=== PATIENT | male | born 1995 | race Caucasian/White ===

== ENCOUNTER 2019-03-05 05:13 | Inpatient (IN) | payer BC ==
[~2019-03-05] VITALS: Ht 193 cm; Wt 83.5 kg
[2019-03-05 05:16] VITALS: BP 131/87
[2019-03-05] MEDS ORDERED: ADDERALL 10 MG10 MG PO (05:23)
[2019-03-05 05:41] LABS: ABSOLUTE NEUTROPHILS 7.6 thou/uL (1.4-8.2); BASOPHILS 0.8 % (0.0-2.0); EOSINOPHILS 0.6 % (0.0-3.0); HEMATOCRIT 44.9 % (42.0-52.0); HEMOGLOBIN 15.5 gm/dL (14.0-18.0); LYMPHOCYTES 24.5 % (24.0-44.0); MCH 31.1 pg (26.0-34.0); MCHC 34.4 g/dL (28.0-37.0); MCV 90.5 fL (80.0-100.0); MONOCYTES 5.7 % (1.0-8.0); PLATELET COUNT 215 thou/uL (150-400); POLYS 68.4 % (36.0-66.0); RBC 4.96 mil/uL (4.50-6.00)
[2019-03-05 05:48] LABS: CALCIUM 9.1 mg/dL (8.5-10.1); POTASSIUM 3.9 mmol/L (3.5-5.1)
[2019-03-05 05:54] LABS: ALBUMIN 4.3 g/dL (3.4-5.0); DIRECT BILIRUBIN 0.1 mg/dL (<0.1-0.3); TOTAL BILIRUBIN 0.8 mg/dL (<0.1-1.0); TOTAL PROTEIN 7.5 g/dL (6.4-8.2)
[2019-03-05 09:10] VITALS: BP 124/79
[2019-03-05 15:55] VITALS: BP 100/55
[2019-03-05 16:46] VITALS: BP 112/61
[2019-03-05 18:49] VITALS: BP 109/60
--- NOTE | 2019-03-05 19:25 | NUR ---
Received pt from the ER, admission requirements done. IV fluids and medication started. Family is at the bedside and significant other will be staying over. Pain is managed with medication with very minimal relief. Clear liquids given, for possible OR tomorrow by Dr. Oquendo, NPO midnight onwards, instrutions given to the pt. POC followed, no other signs or verbalizatons of distress have been noted. Endorsed to the night nurse.
--- NOTE | 2019-03-06 06:11 | NUR ---
ASSUMED CARE OF PT AT 1900HRS. PT AOX4 AN DUP AD TARIK. S/O IS AT BEDSIDE. PT REPORED SOME PAIN AND NAUSEA, AND WAS TREATED WITH PRN AND SCHEDULED MEDS. PT WAS NPO SINCE MIDNIGHT FOR POSSIBLE PROCEDURE IN THE AM. PT WAS ABLE TO GET COMFORTABLE AND SLEEP PART OF THE SHIFT. VSS AND NO S/S OF ACUTE DISTRESS. WILL CONTINUE TO MONITOR.
[2019-03-06 06:34] LABS: HEMATOCRIT 38.8 % (42.0-52.0); MCH 31.3 pg (26.0-34.0); MCV 91.9 fL (80.0-100.0); RBC 4.23 mil/uL (4.50-6.00); RDW 12.7 % (10.5-14.5); WBC 10.5 thou/uL (4.0-11.0)
[2019-03-06 06:48] LABS: HEMOGLOBIN 13.2 gm/dL (14.0-18.0)
[2019-03-06 06:50] LABS: ALBUMIN 3.6 g/dL (3.4-5.0); CALCIUM 8.7 mg/dL (8.5-10.1); MAGNESIUM 1.9 mg/dL (1.8-2.4); PHOSPHORUS 3.5 mg/dL (2.5-4.9); POTASSIUM 3.9 mmol/L (3.5-5.1)
[2019-03-06 07:38] VITALS: BP 114/56
--- NOTE | 2019-03-06 14:36 | NUR ---
PT ADMITTED RELATED TO ABDOMINAL PAIN. CM REVIEWED CHART AND SPOKE WITH CARE TEAM. CM MET WITH PT AND SIG OTHER AT BEDSIDE THIS DAY PT IS A&O X4. CM ROLE INTRODUCED. PT INDICATED HE LIVES IN AN APARTMENT WITH HIS SIG OTHER AND THAT THERE ARE 8 STEPS TO ENTER AND NONE INSIDE. 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 PT INDICATED NO DME OR HH HX. PT INIDCATED HE PLANS TO RETURN HOME ONCE MEDICALLY STABLE. CM TO FOLLOW INDICATED WITH DC PLANNING.
[2019-03-06 15:39] VITALS: BP 116/68
--- NOTE | 2019-03-06 15:55 | NUR ---
Assumed pt care at 7am.Pt in bed resting with girl friend at bs at alltimes. Assessment completed,vss.Dr Oquendo here,order noted.Pt reported that he wasn't going for surgery and was okay to eat.Breakfast order and call placed to doctor but before receiving return call,pt was served breakfast.Dr Oquendo wasn't happy about it.Rn apologized and pt was kept npo.Pt medicated several times with shan po and iv pain med as ordered with partial relief.Pt took shower later this afternoon.Will continue to monitor.
[2019-03-06 20:35] VITALS: BP 127/69
--- NOTE | 2019-03-07 04:38 | NUR ---
assumed care of pt @1900. pt a&ox4. pt adlib in room. girlfriend at bedside. pt decines scheduled tylenol and toradol. stated toradol makes him dizzy and tylenol doesn't help him. pt had been recieving dilauded q2hr for his pain. pt npo except for meds, sips and chips. c/o of nausea. no vomitting. v/s stable. no s/s of distress. call syed within reach. wll cont to monitor
[2019-03-07 07:59] LABS: HEMATOCRIT 38.3 % (42.0-52.0); HEMOGLOBIN 13.1 gm/dL (14.0-18.0); MCH 31.1 pg (26.0-34.0); MCHC 34.3 g/dL (28.0-37.0); MCV 90.8 fL (80.0-100.0); RBC 4.22 mil/uL (4.50-6.00); RDW 12.7 % (10.5-14.5); WBC 9.4 thou/uL (4.0-11.0)
[2019-03-07 08:36] LABS: ALBUMIN 3.3 g/dL (3.4-5.0); CALCIUM 8.4 mg/dL (8.5-10.1); PHOSPHORUS 3.6 mg/dL (2.5-4.9); POTASSIUM 4.3 mmol/L (3.5-5.1)
[2019-03-07 09:12] VITALS: BP 111/60
--- NOTE | 2019-03-07 19:32 | NUR ---
Assumed pt care at 7am.Pt in bed with family at most of the times today. Assessment completed.vss.pt called out every 2hour for pain med.Dr Oquendo here, order noted.Pt tolerated clear liq and wanted to have soda but rn told him he has to abide by the diet ordered by doc. Piv went bad and it was replaced by iv team.Will continue to monitor.
[2019-03-07 20:35] VITALS: BP 119/74
--- NOTE | 2019-03-08 04:46 | NUR ---
Assessments completed. no changes overnight. pt recieving iv pain meds q2hr. pt on clear liquid diet and tolerating it well. pt stated he is feeling better and hoping to go home soon. girlfriend stayed the night. call syed within reach. will cont to monitor
[2019-03-08] MEDS ORDERED: METRONIDAZOLE500 M4 PO (10:46)
[2019-03-08] MEDS ORDERED: CEFDINIR300 MG PO (10:46)
[2019-03-08] MEDS ORDERED: IBUPROFEN 200200 M1 PO (10:46)
[2019-03-08] MEDS ORDERED: OXYCODONE HCL10 MG PO (10:47)
[2019-03-08] MEDS ORDERED: ACETAMINOPHEN325 M1 PO (10:47)
[2019-03-08 12:36] VITALS: BP 121/68
[2019-03-08 19:27] VITALS: BP 130/74
--- NOTE | 2019-03-08 20:23 | NUR ---
Assumed pt care this am, pt tolerated clear liquids, diet was changed to regualr and has been tolerated well. Seen by Dr. Oquendo, pt would request for IV pain meds every 2 hours on the dot. Medication was switched to oral, pt claimed that pain (oxycodone) medication was not working and wuld stay at a 6 to 7 at rest and would be unbearable when he tried to get up to go to the toilet. Informed Dr. Oquendo, medication changed to [place], pt claims the same and stated he has not had pain relief the whole day. Explained the to the pt that pain will not be 100% gone with medicatiion and it takes times. Pt want to have stronger pain meds to keep pain levels at a 3 and tothe point that he can function since he will be at home and not going to work, Pt aslso requested for a medical certificate for work, informed Dr. Oquendo as well. Pt was very unhappy as verbalized his pain has not been controlled and that the doctor has not come back to see him despite the fact that Dr. Oquendo came in twice today. Regualar diet is tolerated well, no nausea or vomiting has been noted. Endorsed to the night nurse and text Dr. Oquendo of the updates.
--- NOTE | 2019-03-09 02:25 | NUR ---
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
[2019-03-09 07:28] VITALS: BP 123/73
[2019-03-09 12:20] VITALS: BP 123/73
--- NOTE | 2019-03-09 12:23 | NUR ---
Assumed pt care this am, pain managed with medications partial relief was noted an d pain magnified with activity. Seen by Dr. Dhillon, informed the pt of dc, partial dc done no instructions or summary was put in. Informed house sup since pt and gf was getting upset since they were told by MD " you can walk out of here and go home". Was informed by house director that pt cannot leave until pt is fully dc in the system. Informed the pt and they were upset that this was not what the MD had informed them of. Called Dr. Dhillon to inform him of the missing piece of the dc, was informed by the MD that he is in another hospital and he will get to a computer as soon as he can but this can take hours to do so. Informed house up of this update and that the pt is not happy and that the gf has come and was starting to be verbally abusive. House sups came doen and gave the partial paper for dc and that this was all we can do and document and inform the pt this is a partial dc with instructions missing. POC followed, IV removed, partial dc papers and prescriptions given to the pt. Pt is now dc and left with the gf.
== END 2019-03-09 12:04 | disposition home or self-care (01) | DRG 394 ==
LOC: ER 05:13 → EROBS 08:27 → 4W 08:27
PROVIDERS: Emergency Medicine; ADMIT Surgery
DX: K36 Other appendicitis (principal); K57.32 Diverticulitis of large intestine without perforation or abscess without bleeding; F98.8 Other specified behavioral and emotional disorders with onset usually occurring in childhood and adolescence; M54.9 Dorsalgia, unspecified; Z88.5 Allergy status to narcotic agent; Z87.891 Personal history of nicotine dependence; Z80.8 Family history of malignant neoplasm of other organs or systems; Z90.49 Acquired absence of other specified parts of digestive tract
CPT/HCPCS: 10040